=== PATIENT | female | born 1985 | race African-American/Black ===

== ENCOUNTER 2019-09-19 03:24 | Emergency (ER) | payer SELFPAY ==
[~2019-09-19] VITALS: Ht 172.7 cm; Wt 107.0 kg
[2019-09-19] MEDS ORDERED: IBUPROFEN 600MG TABLET PO STA (04:01)
[2019-09-19] MEDS ORDERED: TRANEXAMIC ACID 1,000 MG/10 ML TP ONE (04:30)
[2019-09-19] MEDS ORDERED: BACITRACIN ZINC OINT UDPKT TOP ONE (04:30)
[2019-09-19] MEDS ORDERED: LIDOCAINE HCL/PF 1% 10 MG/ML 5ML VIAL IJ ONE (04:30)
[2019-09-19] MEDS ORDERED: TETANUS, DIPHTHERIA, PERTUSSIS VAC/PF 0.5ML (>7YR OLD) IM ONE (04:30)
[2019-09-19] MEDS ORDERED: ONDANSETRON 4MG ODT PO ONE (06:00)
[2019-09-19 06:49] VITALS: BP 130/95
== END 2019-09-19 06:50 | disposition home or self-care (01) ==
LOC: ER 03:24
DX: S61.215A Laceration without foreign body of left ring finger without damage to nail, initial encounter (principal); W25.XXXA Contact with sharp glass, initial encounter; Y93.89 Activity, other specified; Y92.89 Other specified places as the place of occurrence of the external cause; Z23 Encounter for immunization
CPT/HCPCS: 73130; 81025; 90471; 90715; 99284; J3490; Q0162

== ENCOUNTER 2019-09-26 19:46 | Emergency (ER) | payer SELFPAY ==
[~2019-09-26] VITALS: Ht 172.7 cm; Wt 109.0 kg
[2019-09-26 19:52] VITALS: BP 133/80
== END 2019-09-26 21:00 | disposition home or self-care (01) ==
LOC: ER 19:46
DX: Z48.00 Encounter for change or removal of nonsurgical wound dressing (principal); S61.215D Laceration without foreign body of left ring finger without damage to nail, subsequent encounter; W25.XXXD Contact with sharp glass, subsequent encounter; R03.0 Elevated blood-pressure reading, without diagnosis of hypertension
CPT/HCPCS: 99282

== ENCOUNTER 2019-10-02 16:20 | Emergency (ER) | payer SELFPAY ==
[~2019-10-02] VITALS: Ht 172.7 cm; Wt 109.0 kg
[2019-10-02 16:33] VITALS: BP 127/79
== END 2019-10-02 16:55 | disposition home or self-care (01) ==
LOC: ER 16:30
DX: S61.214D Laceration without foreign body of right ring finger without damage to nail, subsequent encounter (principal); X58.XXXD Exposure to other specified factors, subsequent encounter; Z98.890 Other specified postprocedural states
CPT/HCPCS: 99281